=== PATIENT | male | born 1950 | race Caucasian/White ===

== ENCOUNTER 2017-01-15 11:54 | Emergency (ER) | payer BC ==
[~2017-01-15] VITALS: Ht 175.3 cm; Wt 81.6 kg
[2017-01-15 14:33] LABS: EOSINOPHIL (%) 0.2 % (0-5); IMMATURE GRANULOCYTE (%) 0.6 % (0.0-0.7); IMMATURE GRANULOCYTE COUNT 0.1 K/uL; INSTRUMENT ABS NEUTROPHIL CT 8.6 K/uL; LYMPHOCYTE COUNT 1.2 K/uL (1.0-2.8); MCH 29.2 PG (29.0-34.0); MCHC 33.3 G/DL (30.0-36.0); MCV 87.5 FL (86-99); MEAN PLAT.VOLUME 10.6 uM^3 (9.0-12.4); MONOCYTE (%) 6.9 % (3-12); MONOCYTE COUNT 0.7 K/uL (0-0.8); NEUTROPHIL (%) 80.5 % (45-76); NEUTROPHIL COUNT 8.6 K/uL (1.8-6.4); PLATELET COUNT 179 K/uL (156-360); RBC DIS.WIDTH-CV 13.9 % (11.8-14.6); RBC DIS.WIDTH-SD 44.6 % (39-53); RED BLOOD COUNT 3.77 M/uL (4.00-5.50); WHITE BLOOD COUNT 10.7 K/uL (4.1-10.2)
[2017-01-15 15:05] LABS: INTER. NORMALIZED RATIO 1.1; PROTHROMBIN TIME 12.2 SEC (10.2-12.9)
[2017-01-15 15:08] LABS: PTT 28.3 SEC (25-37)
[2017-01-15] MEDS ORDERED: NORCO 5/3251 TABLET PO (17:19)
[2017-01-15 17:53] VITALS: BP 107/88
== END 2017-01-15 18:24 | disposition home or self-care (01) ==
LOC: EME 11:54
PROVIDERS: Emergency Medicine
DX: S50.11XA Contusion of right forearm, initial encounter (principal); S70.12XA Contusion of left thigh, initial encounter; S60.032A Contusion of left middle finger without damage to nail, initial encounter; S62.617A Displaced fracture of proximal phalanx of left little finger, initial encounter for closed fracture; S70.312A Abrasion, left thigh, initial encounter; S80.212A Abrasion, left knee, initial encounter; S50.811A Abrasion of right forearm, initial encounter; V17.4XXA Pedal cycle driver injured in collision with fixed or stationary object in traffic accident, initial encounter; Y93.55 Activity, bike riding; Y92.410 Unspecified street and highway as the place of occurrence of the external cause
CPT/HCPCS: 73130; 76882; 85025; 85610; 85730; 99281; 99284